=== PATIENT | male | born 1990 | race Caucasian/White ===

== ENCOUNTER 2016-12-13 20:19 | Emergency (ER) | END 2016-12-13 22:48 | disposition home or self-care (01) | DX: S92.342A Displaced fracture of fourth metatarsal bone, left foot, initial encounter for closed fracture (principal); X50.9XXA Other and unspecified overexertion or strenuous movements or postures, initial encounter; Y92.9 Unspecified place or not applicable; Z95.0 Presence of cardiac pacemaker | CPT/HCPCS: 73630; Z7502 ==

== ENCOUNTER 2017-06-02 15:09 | Emergency (ER) | END 2017-06-02 15:23 | disposition left against medical advice (07) ==